=== PATIENT | female | born 1965 | race Caucasian/White ===

== ENCOUNTER → 2018-03-03 | Outpatient (CLI) | payer OTHER ==
[~2018-03-03] MED LIST: ALPR1 PO; TRIA80TC TOP; VALACYCLOVIR500 MG; Valtrex1000 MG PO; Xanax1 MG PO
== END ==
LOC: LAB SHORT 16:35 → LAB 16:35
DX: R21 Rash and other nonspecific skin eruption (principal)
CPT/HCPCS: 87529